=== PATIENT | male | born 1955 | race Caucasian/White ===

== ENCOUNTER 2022-03-14 11:26 | Emergency (ER) | payer MEDICARE ==
[2022-03-14 12:03] LABS: ESTIMATED GFR 74 mL/min (>60)
[2022-03-14 18:51] VITALS: BP 184/98; PULSE 57
== END 2022-03-14 13:41 | disposition home or self-care (01) ==
LOC: FB.ED 11:26
DX: R00.2 Palpitations (principal); F10.10 Alcohol abuse, uncomplicated; F41.9 Anxiety disorder, unspecified; Z79.82 Long term (current) use of aspirin; Z79.899 Other long term (current) drug therapy
CPT/HCPCS: 36415; 71046; 80053; 84484; 85025; 85379; 86140; 93005; 99285